=== PATIENT | female | born 2005 | race Caucasian/White ===

== ENCOUNTER 2023-04-06 09:05 | Emergency (ER) | payer SELFPAY ==
[~2023-04-06] VITALS: Ht 160 cm; Wt 72.7 kg
[2023-04-06 10:30] LABS: URINE APPEARANCE TURBID (CLEAR/HAZY); URINE BLOOD 3+ (NEGATIVE); URINE COLOR Dark Yellow (YELLOW); URINE GLUCOSE NEGATIVE (NEGATIVE); URINE KETONE NEGATIVE (NEGATIVE); URINE NITRATE POSITIVE (NEGATIVE); URINE PROTEIN(semi-quant) 2+ (NEGATIVE)
[2023-04-06 10:54] LABS: URINE BACTERIA MANY /hpf (NONE SEEN); URINE RBC >50 /hpf (0-2); URINE WBC 20-50 /hpf (0-2)
[2023-04-06 10:58] LABS: COLLECTION METHOD CLEAN CATCH
[2023-04-06] MEDS ORDERED: CEPHALEXIN500 M1 PO (11:06)
[2023-04-06] MEDS ORDERED: cefTRIAXone 1 G,Lidocaine PF 1% 2.1 ML IM ONE (11:15)
[2023-04-06 11:27] VITALS: BP 136/88; PULSE 97; TEMP 98.4
== END 2023-04-06 11:27 | disposition home or self-care (01) ==
LOC: COL.ER 09:05
PROVIDERS: Emergency Medicine
DX: N39.0 Urinary tract infection, site not specified (principal); Z97.5 Presence of (intrauterine) contraceptive device
CPT/HCPCS: J0696